=== PATIENT | female | born 1985 | race Caucasian/White ===

== ENCOUNTER 2024-04-08 20:31 | Emergency (ER) | payer SELFPAY ==
[~2024-04-08] VITALS: Ht 154.9 cm; Wt 71.2 kg
[2024-04-08 21:20] VITALS: BP 99/75; PULSE 92; RESP 18; TEMP 98.4; O2SAT 98
[2024-04-08 22:40] VITALS: BP 99/75; PULSE 92; RESP 18; TEMP 98.4; O2SAT 98
--- NOTE | 2024-04-08 22:40 | NUR ---
38F C/O RIGHT FLANK PAIN X2 DAYS, PAINFUL URINATION, EXPERIENCING N/V, ABDOMINAL PAIN. DENIES TRAUMA TO ABDOMEN, DENIES PAIN MEDICATION AT HOME. SAFETY MEASURES IN PLACE. PMHX CHOLECYSTECTOMY, APPENDECTOMY
[2024-04-08 22:41] LABS: BASOPHILS # (AUTO) 0.1 K/uL (0.00-0.22); BASOPHILS % (AUTO) 0.7 % (0.0-2.0); EOSINOPHILS # (AUTO) 0.8 K/uL (0-0.4); EOSINOPHILS % (AUTO) 9.8 % (0.0-4.0); HEMATOCRIT 40.7 % (36-48); HEMOGLOBIN 13.5 g/dL (12.0-16.0); LYMPHOCYTES # (AUTO) 1.9 K/uL (2.5-16.5); LYMPHOCYTES % (AUTO) 22.2 % (20.5-51.1); MEAN CORPUSCULAR HEMOGLOBIN 29 pg (27-31); MEAN CORPUSCULAR HGB CONC 33 g/dL (33-37); MEAN CORPUSCULAR VOLUME 86.4 fL (80-94); MONOCYTES # (AUTO) 0.7 K/uL (0.8-1.0); MONOCYTES % (AUTO) 8.1 % (1.7-9.3); NEUTROPHILS # (AUTO) 5.1 K/uL (1.8-7.7); NEUTROPHILS % (AUTO) 59.2 % (42.2-75.2); PLATELET COUNT (AUTO) 312 K/uL (140-450); RED BLOOD CELL COUNT(AUTO) 4.71 MIL/uL (4.20-5.40); RED CELL DISTRIBUTION WIDTH 17.3 % (11.6-13.7); WHITE BLOOD COUNT (AUTO) 8.7 K/uL (4.8-10.8)
[2024-04-08] MEDS: ONDANSETRON 4 MG/2 ML VIAL IVP ONE (22:48)
[2024-04-08] MEDS: MORPHINE SULFATE 4 MG/ML SYR IVP ONE (22:50)
[2024-04-08] MEDS: NACL 0.9% 1,000 ML IV ONE (22:51)
[2024-04-08 23:00] LABS: APPEARANCE,URINE CLEAR (CLEAR); BILIRUBIN,URINE NEGATIVE (NEGATIVE); BLOOD, URINE 3+ (NEGATIVE); COLOR,URINE YELLOW (YELLOW); LEUKOCYTE ESTERASE ,URINE NEGATIVE (NEGATIVE); NITRITE, URINE NEGATIVE (NEGATIVE); PH,URINE 6.5 (5.0-9.0); PROTEIN,URINE NEGATIVE (NEGATIVE); UGLUCOSE NEGATIVE (NEGATIVE); UROBILINOGEN,URINE 0.2 EU/dL (0.2 - 1)
[2024-04-08 23:02] LABS: CALCIUM 9.1 mg/dL (8.5-10.1); CARBON DIOXIDE 28.9 mmol/L (21-32); CREATININE 0.8 mg/dL (0.6-1.3)
[2024-04-08 23:04] LABS: BACTERIA,URINE 1+ /HPF (None Seen); MUCUS,URINE 2+ /LPF (None Seen); RBC,URINE TOO NUMEROUS TO COUN /HPF (0-5); SQUAMOUS EPITHELIAL CELL,UR 4-10 (MOD) /LPF (0-3 (FEW)); WBC,URINE 0-5 /HPF (0-5)
[2024-04-08 23:06] LABS: POTASSIUM 2.9 mmol/L (3.5-5.1)
[2024-04-08 23:07] LABS: ALBUMIN 3.3 g/dL (3.4-5.0); BILIRUBIN,DIRECT 0.1 mg/dL (0.0-0.3); TOTAL BILIRUBIN 0.2 mg/dL (0.0-1.0); TOTAL PROTEIN, SERUM 7.4 g/dL (6.4-8.2)
[2024-04-08] MEDS: POTASSIUM CHLORIDE 10 MEQ TABER PO ONE (23:19)
--- NOTE | 2024-04-08 23:31 | NUR ---
PATIENT UNABLE TO TOLERATE PO MEDICATION, VOMITED THEM BACK UP. MD NOTIFIED
[2024-04-08] MEDS: KCL 20 MEQ IN 100 mL PREMIX 100 ML IV ONE (23:54)
[2024-04-09] MEDS: MORPHINE SULFATE 4 MG/ML SYR IVP ONE ×2 (00:06→02:33)
[2024-04-09] MEDS ORDERED: ONDA-188 PO (03:31)
[2024-04-09] MEDS ORDERED: ACET-8905 PO (03:31)
--- NOTE | 2024-04-09 03:42 | NUR ---
Patient discharged with v/s stable. Written and verbal after care instructions given and explained. Patient verbalized understanding. Ambulatory with steady gait. All questions addressed prior to discharge. Advised to follow up with PMD.
== END 2024-04-09 03:41 | disposition home or self-care (01) ==
LOC: MED 20:31
DX: N20.0 Calculus of kidney (principal); E87.6 Hypokalemia; R31.9 Hematuria, unspecified; Z90.49 Acquired absence of other specified parts of digestive tract; Z79.899 Other long term (current) drug therapy
CPT/HCPCS: 36415; 74176; 80048; 80076; 81001; 81025; 83690; 85025; 96361; 96365; 96366; 96375; 96376; 99285; J2270; J2405; J3480; J7030